=== PATIENT | female | born 1990 | race Caucasian/White ===

== ENCOUNTER 2017-03-09 12:36 | Outpatient (CLI) | payer OTHER ==
[~2017-03-09] VITALS: Ht 152.4 cm; Wt 74.0 kg
[~2017-03-09 12:36] MED LIST: PREN-39 PO
[2017-03-09 13:16] VITALS: BP 100/50; PULSE 81; RESP 18; Ht 152.4 cm; Wt 74.0 kg
--- NOTE | 2017-03-09 13:52 | RADRPT ---
PROCEDURE: OB ultrasound for biophysical profile CLINICAL INDICATION: Decreased movement TECHNIQUE: Multiple sonographic images of the pelvis were obtained. Transabdominal views of the g ravid uterus are available for review. The images were reviewed on a PACS workstation. COMPARISON: None FINDINGS: breathing movement = 2/2 tone = 2/2 motion = 2/2 LIU = 2/2 LIU = 14.9 cm Single live intrauterine with cardiac activity of 150 bpm. position is breech . The placenta is anterior. The cervix is closed with a length of 4.1 cm. IMPRESSION: 1. Single live intrauterine gestation. 2. Biophysical profile = 03/16. 3. LIU = 14.9 cm. 4. Breech presentation. 5. The cervix is closed with a length of 4.1 cm. RPTAT: HH .Shelby Hu MD, Date Time Electronically viewed and signed by .Shelby Hu MD, on 03/09/2017 13:52 .G/
[2017-03-09 14:13] LABS: UR BACTERIA FEW /HPF (NONE SEEN); UR MUCUS MODERATE /HPF (NONE SEEN); UR RBC 2 /HPF (0-5); UR SQUAMOUS EPITHELIAL CELL FEW /HPF (FEW)
[2017-03-09 14:14] LABS: ADD UMIC YES; UR ASCORBIC ACID NEGATIVE (NEGATIVE); UR BILIRUBIN (Dip) NEGATIVE (NEGATIVE); UR BLOOD (Dip) NEGATIVE (NEGATIVE); UR CLARITY CLEAR (CLEAR); UR COLOR YELLOW (YELLOW); UR GLUCOSE (Dip) NEGATIVE (NEGATIVE); UR KETONES (Dip) TRACE mg/dL (NEGATIVE); UR LEUKOCYTE ESTERASE (Dip) TRACE Leu/ul (NEGATIVE); UR NITRITE (Dip) NEGATIVE (NEGATIVE); UR SPECIFIC GRAVITY (Dip) 1.025 (1.003-1.030); UR TOTAL PROTEIN (Dip) NEGATIVE (NEGATIVE); UR UROBILINOGEN (Dip) NEGATIVE (NEGATIVE)
--- NOTE | 2017-03-09 14:49 | CONS ---
Date/Time of Note Date/Time of Note DATE: 03/09/17 TIME: 14:40 Consultation Date/Type/Reason Admit Date/Time March 09, 2017 OB triage consult Reason for Consultation This patient is a 26 years old 3 para 2 living 2 who had both previous deliveries by section. Her estimated date of confinement is June 20, 2017 which makes her 25 weeks and 2 days now. She came in complaining of premature contractions for the entire last week and the low movement. On examination she is a well-developed well-nourished lady. Her general vital signs are basically normal with the blood pressure of 100/50, pulse rate 81 respiration 18,, and temperature 98.0. Laboratory Tests Test 03/09/17 13:30 Urine Color YELLOW Urine Clarity CLEAR Urine pH 5.0 Urine Specific [place] 1.025 Urine Ketones TRACEmg/dL Urine Nitrite NEGATIVEmg/dL Urine Bilirubin NEGATIVEmg/dL Urine Urobilinogen NEGATIVEmg/dL Urine Leukocyte Esterase TRACELeu/ul Urine Microscopic RBC 2/HPF Urine Microscopic WBC 1/HPF Urine Squamous Epithelial Cells FEW/HPF Urine Bacteria FEW/HPF Urine Mucus MODERATE/HPF Urine Hemoglobin NEGATIVEmg/dL Urine Glucose NEGATIVEmg/dL Urine Total Protein NEGATIVEmg/dl Constitutional: chills, diaphoresis, disoriented, febrile, improved, no complaints, other, poor po, requiring IVF, requiring O2 Eyes: discharge, no complaints, other, pain, redness, visual change ENT: bleeding, congestion, discharge, dysphagia, no complaints, other, pain, sore throat Respiratory: cough, no complaints, other, pain, pleuritic pain, shortness of breath, sputum, wheezing Cardiovascular: chest pain, edema, lightheadedness, no complaints, orthopenea, other (Heart normal sinus rhythm no murmur), palpitations, paroxysmal nocturnal dyspnea Gastrointestinal: other (Abdomen is soft no evidence of uterine contractions heart tone is normal), No blood, No constipation, No decreased appetite, No diarrhea, No flatus, No nausea, No no complaints, No pain, No passing stool, No vomiting Genitourinary: other (No CVA tenderness no dysuria), No bleeding, No discharge, No dysuria, No flank pain, No hematuria, No no complaints Musculoskeletal: No back pain, No bone/joint pain, No neck pain, No no complaints, No other, No restricted range of motion, No swelling Skin: No bruising, No erythema, No laceration, No no complaints, No other, No pruritis, No rash, No skin lesions Neurologic: other (Knee-jerk reflex are normal), No confusion, No dizziness, No focal-weakness, No headache, No no complaints , No seizure, No syncope Endocrine: No dry skin, No no complaints, No other, No polydypsia, No polyuria , No temp intolerance Additional Comments OB ultrasound was performed and the report was ;a single live intrauterine with cardiac activity 150 bpm in breech presentation placenta was anterior cervical length was 4.1 cm. The amniotic fluid index was 14.9 cm and LIU was 8/8 Disposition; with these normal findings the patient was reassured and she was discharged home with instruction to rest and return if any evidence of bleeding .severe pain, low movement or any sign of labor to be seen in the triage area Social History Smoking Status: Never smoker Exam/Review of Systems Vital Signs Vitals Vital Signs Date Time Temp Pulse Resp B/P Pulse Ox O2 Delivery O2 Flow Rate FiO2 03/09/17 13:16 98.0 81 18 100/50 Room Air Results Results 24 hrs Laboratory Tests Test 03/09/17 13:30 Urine Color YELLOW Urine Clarity CLEAR Urine pH 5.0 Urine Specific [place] 1.025 Urine Ketones TRACE A Urine Nitrite NEGATIVE Urine Bilirubin NEGATIVE Urine Urobilinogen NEGATIVE Urine Leukocyte Esterase TRACE A Urine Microscopic RBC 2 Urine Microscopic WBC 1 Urine Squamous Epithelial Cells FEW Urine Bacteria FEW A Urine Mucus MODERATE Urine Hemoglobin NEGATIVE Urine Glucose NEGATIVE Urine Total Protein NEGATIVE YOGI MUNOZ MD Mar 09, 2017 14:49
--- NOTE | 2017-03-09 17:27 | TRIAGE ---
OB Triage Datetime Report Generated by CPN: 03/09/2017 17:27 Datetime: 03/09/2017 14:33 Stage of : OB Triage Datetime: 03/09/2017 14:21 Stage of : OB Triage Datetime: 03/09/2017 14:13 Labor Evaluation Frequency: 0 Monitor Mode: External US Pain Assessment Pain Scale: 5 Pain Presence: Intermittent Pain Type: Cramping Pain Location: Perineum Pain Goal: 3 Pain Relief Measures: Comfort Measures Datetime: 03/09/2017 13:27 Assessment Type: Admission Assessment Maternal Assessment Level of Consciousness: Fully Conscious DTR's/Clonus: DTRs 2+; No Clonus Headache: Denies Blurred Vision: No Respiratory Effort: Unlabored; Regular Rhythm; Equal Expansion Breath Sounds, Left: Clear and Equal Breath Sounds, Right: Clear and Equal Nausea/Vomiting: Denies RUQ Epigastric Pain: Denies Lower Extremities Edema: None Degree: None Upper Extremities Edema: None Degree: None Facial Edema: None Fall Risk Assessment History of Falling: (0) No Secondary Diagnosis: (0) No Ambulatory Aid: (0) Bedrest/Nurse Assist IV Therapy: (0) No Gait: (0) Normal/Bedrest/Immobile Mental Status: (0) Oriented to Own Ability Fall Score: 0 Fall Risk Score Definition: No Risk: No action required Labor Evaluation Frequency: 115 Monitor Mode: External Duration (sec)2399: 40 Quality: Mild Pattern: Normal: <= 5 Contractions in 10 Minutes Resting Tone [place]: Relaxed Heart Rate FHR Baseline Rate: 145 Monitor Mode: External US Variability: Moderate 6-25 bpm Accelerations: 10X10 Decelerations: None Category: Category I Datetime: 03/09/2017 13:24 Time of Arrival: 03/09/2017 12:34 EGA: 25.2 Arrived By: Ambulatory Arrived From: Home Chief Complaint: DFM AND UC'S SINCE LAST WEEK Movement: Decreased Contractions: Irregular Time Contractions Began: 03/02/2017 00:00 Rupture of Membranes: Denies Vaginal Bleeding: None Vaginal Discharge: Denies Recent Sexual Intercouse: Denies Abdominal Trauma: Not Applicable Patient Complaints: Cramping Time Provider Notified: 03/09/2017 14:21 Provider Notified: HUSSAIN Initial Plan: NST, BPP, CERVICAL LENGHT AND UA
== END 2017-03-09 14:46 | disposition home or self-care (01) ==
LOC: OBT 12:36 → L-D 12:39 → OBT 14:46
PROVIDERS: ATTEND Obstetrics & Gynecology
DX: O47.02 False labor before 37 completed weeks of gestation, second trimester (principal); Z3A.25 25 weeks gestation of pregnancy
CPT/HCPCS: 76817; 76818; 81001; Z7500; G0463

== ENCOUNTER 2017-04-13 16:42 | Inpatient (IN) | payer OTHER ==
[~2017-04-13] VITALS: Ht 152.4 cm; Wt 74.0 kg
[2017-04-13 17:07] VITALS: Ht 152.4 cm; Wt 74.0 kg
[2017-04-13 17:08] VITALS: BP 111/68; PULSE 107
[2017-04-13] MEDS ORDERED: HYDR250V5 IM (17:10)
[2017-04-13 17:51] LABS: ADD UMIC YES; UR ASCORBIC ACID NEGATIVE (NEGATIVE); UR BILIRUBIN (Dip) 1+ mg/dL (NEGATIVE); UR BLOOD (Dip) NEGATIVE (NEGATIVE); UR CLARITY SLIGHTLY CLOUDY (CLEAR); UR COLOR AMBER (YELLOW); UR GLUCOSE (Dip) NEGATIVE (NEGATIVE); UR KETONES (Dip) 1+ mg/dL (NEGATIVE); UR LEUKOCYTE ESTERASE (Dip) NEGATIVE Leu/ul (NEGATIVE); UR MUCUS MANY /HPF (NONE SEEN); UR NITRITE (Dip) NEGATIVE (NEGATIVE); UR RBC 1 /HPF (0-5); UR SQUAMOUS EPITHELIAL CELL FEW /HPF (FEW); UR TOTAL PROTEIN (Dip) 2+ mg/dl (NEGATIVE); UR UROBILINOGEN (Dip) 2+ mg/dL (NEGATIVE)
[2017-04-13 18:02] LABS: BASOPHILS % 0.2 % (0.0-2.0); EOSINOPHILS # 0.2 10^3/ul (0.0-0.5); HEMATOCRIT 29.6 % (37.0-47.0); HEMOGLOBIN 9.8 g/dl (12.0-16.0); LYMPHOCYTES % 23.7 % (15.0-51.0); MEAN CORPUSCULAR HEMOGLOBIN 29.5 pg (29.0-33.0); MEAN CORPUSCULAR HGB CONC 33.1 g/dl (32.0-37.0); MEAN CORPUSCULAR VOLUME 89.2 fl (82.0-101.0); MEAN PLATELET VOLUME 11.2 fl (7.4-10.4); MONOCYTE # 0.7 10^3/ul (0.3-0.9); MONOCYTES % 8.3 % (0.0-11.0); NEUTROPHILS % 65.4 % (39.0-77.0); PLATELET COUNT 175 10^3/UL (140-415); RED BLOOD COUNT 3.32 10^6/ul (4.20-5.40); RED CELL DISTRIBUTION WIDTH 12.9 % (11.5-14.5); WHITE BLOOD COUNT 8.5 10^3/ul (4.8-10.8)
--- NOTE | 2017-04-13 18:34 | RADRPT ---
PROCEDURE: Biophysical profile CLINICAL INDICATION: distress. labor. TECHNIQUE: Color and yoder-scale ultrasound images of an intrauterine gestation were obtained. COMPARISON: March 09, 2017 FINDINGS: A single live intrauterine gestation is identified in breech position with an estimated heart rate of 132 beats per minute. The placenta is located anteriorly and has a grade of II. The cervix measures approximately 3.3 cm in length. Trace amount of fluid is seen in the cervical canal. No e vidence of previa or abruption identified. LIU is 20.4 cm. movement 2/2. tone 2/2. breathing movement 2/2. Qualitative AFV 2/2 Total biophysical profile 03/16 IMPRESSION: 03/16 biophysical profile. Cervical length of 3.3 cm. Trace fluid in the cervical canal. RPTAT: AA .Denys Kapoor MD, Date Time Electronically viewed and signed by .Denys Kapoor MD, MD on 04/13/2017 18:33 .P/
[2017-04-13] MEDS ORDERED: LACTATED RINGER'S 1,000 ML IV ONE (21:00)
[2017-04-13] MEDS: LACTATED RINGER'S 1,000 ML IV SCH ×2 (21:30→23:18)
--- NOTE | 2017-04-13 22:51 | HP ---
Date/Time of Note Date/Time of Note DATE: 04/13/17 TIME: 22:39 OB - History Hx of Present Free Text/Dictation .26y.o who had x2 c/s with one PTB whos been receiving bernie injection wkly was sent from her OB for further evaluation c/o uterine contractions frequent ,pain level 5/10 even though dosent well registered on EFM after the IV hydration still c/o intermittent pelvic pain which shows as mild frequent U.C CVL 4.1 03/09/17 today 3.3cm trace of fluid in the canal admit her to antepartum with starting magnesium sulfate and BMZ bed rest Chief Complaint: U.C's Estimated Due Date: Jun 20, 2017 : 3 Para: 2 Spontaneous : 0 Therapeutic : 0 Care: Good Care Ultrasounds: Normal mid trimester US Obstetrical Complications: None Medical Complications: None Other Concerns: hx of PTB Past Family/Social History * Past Medical, Surgical, Family and Obstetric Histories reviewed from chart. Blood Type: Unknown Rubella: unknown RPR/VDRL: Unknown GBS Status: Unknown HBsAG: Unknown OB Admission Exam Vital Signs Vital Signs Vital Signs Date Time Temp Pulse Resp B/P Pulse Ox O2 Delivery O2 Flow Rate FiO2 04/13/17 17:08 98.7 107 111/68 Physical Exam HEENT: WNL Heart: Rhythm Normal Lungs: Clear, Equal Abdomen: WNL Extremities: Normal Reflexes: Normal Effacement: Other Station: Other Amniotic Fluid: Other Heart Rate: 150's Accelerations: Accelerations Present Decelerations: Variable Decelerations Varibility: Moderate Contractions on Admission: < 5 Minutes Apart Intensity: Mild Last 72 hours Lab Results CBC & BMP 04/13/17 17:45 OB Assessment/Plan Reason for admission: labor Other Assessment: 30w2d Plan: Other (Mg so4 BMZx2) Other plan: bed rest MFM consult CHANDAN CHILDRESS MD Apr 13, 2017 22:49
[2017-04-13] MEDS ORDERED: ACETAMINOPHEN 325 MG TAB PO PRN (23:00)
[2017-04-13] MEDS ORDERED: MAGNESIUM SULFATE 4 GM/100 ML 100 ML IV ONE (23:00)
[2017-04-13] MEDS: MAGNESIUM SULFATE 20 GM/500 ML 500 ML IV SCH (23:49)
[2017-04-13] MEDS: BETAMET NA PHOS/AC(6 MG/ML) 5ML INJ IM SCH (23:56)
[2017-04-14 01:49] LABS: INR 0.99; PROTIME 13.1 Sec (12.2-14.2)
--- NOTE | 2017-04-14 06:04 | TRIAGE ---
OB Triage Datetime Report Generated by CPN: 04/14/2017 06:03 Datetime: 04/14/2017 05:15 Stage of : Antepartum Labor Evaluation Frequency: 4 + IRRITABILITY Monitor Mode: External Duration (sec)2399: 50-60 Quality: Mild Pattern: Normal: <= 5 Contractions in 10 Minutes Resting Tone [place]: Relaxed Heart Rate FHR Baseline Rate: 120 Monitor Mode: External US Variability: Moderate 6-25 bpm Accelerations: 15X15 Decelerations: None Category: Category I Vaginal Exam Membrane Status: Intact Datetime: 04/14/2017 04:15 Stage of : Antepartum Labor Evaluation Frequency: 2-4+ IRRITABILITY Monitor Mode: External Duration (sec)2399: 50-60 Quality: Mild Pattern: Normal: <= 5 Contractions in 10 Minutes Resting Tone [place]: Relaxed Heart Rate FHR Baseline Rate: 125 Monitor Mode: External US Variability: Moderate 6-25 bpm Accelerations: 15X15 Decelerations: None Category: Category I Pain Assessment Pain Scale: 2 Pain Presence: Intermittent Pain Type: Contraction Pain Location: Abdomen; Back Pain Relief Measures: Comfort Measures Vaginal Exam Membrane Status: Intact Datetime: 04/14/2017 03:15 Stage of : Antepartum Labor Evaluation Frequency: 2-4 Monitor Mode: External Duration (sec)2399: 50-60 Quality: Mild Pattern: Normal: <= 5 Contractions in 10 Minutes Resting Tone [place]: Relaxed Heart Rate FHR Baseline Rate: 130 Monitor Mode: External US Variability: Moderate 6-25 bpm Accelerations: 15X15 Decelerations: None Category: Category I Pain Assessment Pain Scale: 2 Pain Presence: Intermittent Pain Type: Contraction Pain Location: Abdomen; Back Pain Relief Measures: Comfort Measures Vaginal Exam Membrane Status: Intact Datetime: 04/14/2017 02:15 Labor Evaluation Frequency: IRRITABILITY Monitor Mode: External Duration (sec)2399: 30-50 Quality: Mild Pattern: Normal: <= 5 Contractions in 10 Minutes Resting Tone [place]: Relaxed Heart Rate FHR Baseline Rate: 135 Variability: Moderate 6-25 bpm Accelerations: 15X15 Decelerations: None Category: Category I Pain Assessment Pain Scale: 2 Pain Presence: Intermittent Pain Type: Contraction Pain Location: Abdomen; Back Pain Relief Measures: Comfort Measures Vaginal Exam Membrane Status: Intact Datetime: 04/14/2017 01:23 Stage of : Antepartum Labor Evaluation Frequency: irritability Monitor Mode: External Duration (sec)2399: 20-40 Quality: Mild Pattern: Normal: <= 5 Contractions in 10 Minutes Resting Tone [place]: Relaxed Heart Rate FHR Baseline Rate: 135 Variability: Moderate 6-25 bpm Accelerations: 10X10 Decelerations: None Category: Category I Pain Assessment Pain Scale: 5 Pain Presence: Intermittent Pain Type: Contraction Pain Location: Abdomen; Back Pain Goal: 8 Pain Relief Measures: Comfort Measures Vaginal Exam Membrane Status: Intact Datetime: 04/14/2017 01:19 Time of Arrival: 04/14/2017 01:19 EGA: 30.3 Arrived By: Stretcher Arrived From: Other Unit in Hospital Datetime: 04/14/2017 01:15 Stage of : Antepartum Temperature Route: Oral Datetime: 04/14/2017 00:57 Stage of : OB Triage Labor Evaluation Frequency: Irritability _ irregular uc's Monitor Mode: External Duration (sec)2399: 20-80 Quality: Mild Pattern: Normal: <= 5 Contractions in 10 Minutes Resting Tone [place]: Relaxed Heart Rate FHR Baseline Rate: 130 Monitor Mode: External US Variability: Moderate 6-25 bpm Accelerations: 15X15 Decelerations: None Category: Category I Datetime: 04/14/2017 00:00 Stage of : OB Triage Labor Evaluation Frequency: Irritability _ irregular uc's Monitor Mode: External Duration (sec)2399: 20-50 Quality: Mild Pattern: Normal: <= 5 Contractions in 10 Minutes Resting Tone [place]: Relaxed Heart Rate FHR Baseline Rate: 135 Monitor Mode: External US Variability: Moderate 6-25 bpm Accelerations: 15X15 Decelerations: None Category: Category I Datetime: 04/13/2017 23:00 Stage of : OB Triage Labor Evaluation Frequency: Irritability _ irregular uc's Monitor Mode: External Duration (sec)2399: 30-40 Quality: Mild Pattern: Normal: <= 5 Contractions in 10 Minutes Resting Tone [place]: Relaxed Heart Rate FHR Baseline Rate: 130 Monitor Mode: External US Variability: Moderate 6-25 bpm Accelerations: 15X15 Decelerations: None Category: Category I Datetime: 04/13/2017 22:15 Vaginal Exam Membrane Status: Intact Datetime: 04/13/2017 22:00 Stage of : OB Triage Labor Evaluation Frequency: Irritability _ irregular uc's Monitor Mode: External Duration (sec)2399: 20-60 Quality: Mild Pattern: Normal: <= 5 Contractions in 10 Minutes Resting Tone [place]: Relaxed Comments: Pt reports positive movt. Datetime: 04/13/2017 21:00 Stage of : OB Triage Labor Evaluation Frequency: Irritability _ irregular uc's Monitor Mode: External Duration (sec)2399: 20-70 Quality: Mild Pattern: Normal: <= 5 Contractions in 10 Minutes Resting Tone [place]: Relaxed Heart Rate FHR Baseline Rate: 140 Monitor Mode: External US FHR Baseline Changes: No Baseline Change Variability: Moderate 6-25 bpm Accelerations: 15X15 Decelerations: Variable Category: Category II Datetime: 04/13/2017 20:51 Stage of : OB Triage Datetime: 04/13/2017 20:00 Stage of : OB Triage Labor Evaluation Frequency: Irritability Monitor Mode: External Duration (sec)2399: 20-50 Quality: Mild Pattern: Normal: <= 5 Contractions in 10 Minutes Resting Tone [place]: Relaxed Heart Rate FHR Baseline Rate: 140 Monitor Mode: External US Variability: Moderate 6-25 bpm Accelerations: 15X15 Decelerations: Variable Category: Category II Datetime: 04/13/2017 19:31 Stage of : OB Triage Assessment Type: Triage Maternal Assessment Level of Consciousness: Fully Conscious DTR's/Clonus: DTRs 2+; No Clonus Headache: Denies Blurred Vision: No Respiratory Effort: Unlabored; Regular Rhythm; Equal Expansion Breath Sounds, Left: Clear and Equal Breath Sounds, Right: Clear and Equal Nausea/Vomiting: Denies RUQ Epigastric Pain: Denies Lower Extremities Edema: Bilateral Lower Extremities Degree: 1+ Upper Extremities Edema: None Degree: None Facial Edema: None Temperature Route: Oral Fall Risk Assessment History of Falling: (0) No Secondary Diagnosis: (0) No Ambulatory Aid: (0) Bedrest/Nurse Assist IV Therapy: (0) No Gait: (0) Normal/Bedrest/Immobile Mental Status: (0) Oriented to Own Ability Fall Score: 0 Fall Risk Score Definition: No Risk: No action required Monitor Mode: External US Datetime: 04/13/2017 19:30 Stage of : OB Triage Datetime: 04/13/2017 19:15 Stage of : OB Triage Datetime: 04/13/2017 17:38 Stage of : OB Triage Datetime: 04/13/2017 17:04 Stage of : OB Triage Assessment Type: Triage Maternal Assessment Level of Consciousness: Fully Conscious DTR's/Clonus: DTRs 2+; No Clonus Headache: Denies Blurred Vision: No Respiratory Effort: Unlabored; Regular Rhythm; Equal Expansion Breath Sounds, Left: Clear and Equal Breath Sounds, Right: Clear and Equal Nausea/Vomiting: Denies RUQ Epigastric Pain: Denies Facial Edema: None Temperature Route: Axillary Fall Risk Assessment History of Falling: (0) No Secondary Diagnosis: (0) No Ambulatory Aid: (0) Bedrest/Nurse Assist IV Therapy: (0) No Gait: (0) Normal/Bedrest/Immobile Mental Status: (0) Oriented to Own Ability Fall Score: 0 Fall Risk Score Definition: No Risk: No action required Labor Evaluation Frequency: 0 Monitor Mode: External Resting Tone [place]: Relaxed Heart Rate FHR Baseline Rate: 145 Monitor Mode: External US Variability: Moderate 6-25 bpm Accelerations: 10X10 Decelerations: None Category: Category I Pain Assessment Pain Scale: 5 Pain Presence: Intermittent Pain Type: Cramping Pain Location: Abdomen Pain Goal: 3 Pain Relief Measures: Comfort Measures Datetime: 04/13/2017 16:20 Time of Arrival: 04/13/2017 16:14 EGA: 30.2 Arrived By: Ambulatory Chief Complaint: UCs Movement: Present Contractions: Regular Rupture of Membranes: Denies Vaginal Bleeding: None Vaginal Discharge: Denies Abdominal Trauma: Not Applicable Patient Complaints: Contractions; Cramping Time Provider Notified: 04/13/2017 17:38 Provider Notified: Initial Plan: UA, CBC, BPP/LIU, CERVICAL LENGTH Datetime: 03/09/2017 17:26 Time of Arrival: 04/13/2017 16:14 EGA: 30.2 Arrived By: Ambulatory Arrived From: Home Chief Complaint: C/O UC'S, DENIES BLEEDING OR LEAKING Movement: Decreased Contractions: Denies/Absent Rupture of Membranes: Denies Vaginal Bleeding: None Vaginal Discharge: Present Recent Sexual Intercouse: Denies Abdominal Trauma: Not Applicable Patient Complaints: Cramping Time Provider Notified: 04/13/2017 17:40 Provider Notified: ALEXANDER Initial Plan: MONITOR, U/A, CBC, CL, BPP/LIU Datetime: 03/09/2017 13:27 Fall Score: 0 Fall Risk Score Definition: No Risk: No action required Datetime: 03/09/2017 13:24 EGA: 25.2
[2017-04-14] MEDS: LACTATED RINGER'S 1,000 ML IV SCH ×4 (07:30→23:46)
[2017-04-14] MEDS: PRENATAL VITAMIN PO SCH (09:12)
[2017-04-14] MEDS: MAGNESIUM SULFATE 20 GM/500 ML 500 ML IV SCH ×2 (09:15→18:07)
--- NOTE | 2017-04-14 13:18 | QN ---
Documentation Comment 30+wks GA labor No CTxs No VB No CTXs +FM No VB Currently On Mg s/p 1st dose of steroid NST reassuring Laie NO CTXs Pelvic Deferred --->Contniue the current orders ELIECER MARQUEZ M.D. Apr 14, 2017 13:18
[2017-04-14] MEDS: BETAMET NA PHOS/AC(6 MG/ML) 5ML INJ IM SCH (23:45)
[2017-04-15] MEDS: LACTATED RINGER'S 1,000 ML IV SCH ×5 (01:30→21:30)
[2017-04-15] MEDS: MAGNESIUM SULFATE 20 GM/500 ML 500 ML IV SCH ×3 (03:09→23:23)
[2017-04-15] MEDS: PRENATAL VITAMIN PO SCH (13:14)
--- NOTE | 2017-04-15 18:54 | CONS ---
Date/Time of Note Date/Time of Note DATE: 04/15/17 TIME: 18:49 Consultation Date/Type/Reason Admit Date/Time April 15, 2017 High risk hospital consult This patient is a 26 years old 3 para 2 with estimated date of confinement of 06/20/2017 which makes her 30 weeks and 6/7 a She was admitted in the hospital to nights ago. Due to previous history of delivery at 27 weeks. She had 2 section in the past currently she is in [place] weekly On ultrasound which was performed on April 13 her cervical length was 3.3 cm she already received a mag sulfate 2 on her max sulfate will be stopped at 11: 00 tonight he also received betamethasone twice Laboratory Tests Test 04/14/17 23:54 04/15/17 05:52 04/15/17 12:07 Magnesium Level 6.0mg/dl 6.0mg/dl 6.1mg/dl Current Medications Medications (Trade) Dose Ordered Sig/Nayeli Route PRN Reason Start Time Stop Time Status Last Admin Dose Admin Lactated Ringer's 1,000 ml @ 1,000 mls/hr Q1H ONCE IV 04/13/17 21:00 04/13/17 21:59 DC 04/13/17 21:19 1,000 MLS/HR Lactated Ringer's 1,000 ml @ 125 mls/hr Q8H IV 04/13/17 21:30 04/15/17 13:15 125 MLS/HR Lactated Ringer's 1,000 ml @ 75 mls/hr [id number] IV 04/13/17 22:50 04/14/17 10:40 75 MLS/HR Magnesium Sulfate 100 ml @ 200 mls/hr ONCE ONCE IV 04/13/17 23:00 04/13/17 23:29 DC 04/13/17 23:21 200 MLS/HR Magnesium Sulfate (Magnesium Sulfate 20 Gm/500 ml) 500 ml @ 50 mls/hr Q10H IV 04/13/17 23:30 04/15/17 13:17 50 MLS/HR Betamethasone Acet/Betameth SodPhos ([place] Soluspan) 12 mg Q24H IM 04/13/17 23:00 04/14/17 23:01 DC 04/14/17 23:45 12 MG Prenat Multivit/ [place]/Iron/Folic Ac () 1 tab DAILY PO 04/14/17 09:00 04/15/17 13:14 1 TAB Acetaminophen (Tylenol Tab) 650 mg Q4H PRN PO PAIN AND OR ELEVATED TEMP 04/13/17 23:00 . Initial Consult Date Reason for Consultation Due to the complaint of a pink vaginal discharge I did a pelvic exam on pelvic exam the cervix is soft his posterior closed no evidence of pink discharge or vaginal bleeding with these finding if if he does not develop any contractions she might be discharged tomorrow performed for further follow-up in the clinic 24 HR Interval Summary Constitutional: other Exam/Review of Systems Vital Signs Vitals Vital Signs Date Time Temp Pulse Resp B/P Pulse Ox O2 Delivery O2 Flow Rate FiO2 04/13/17 17:08 98.7 107 111/68 Intake and Output 04/14/17 04/14/17 04/15/17 14:59 22:59 06:59 Intake Total 875 ml 1245 ml 1010 ml Output Total 800 ml 2100 ml 650 ml Balance 75 ml -855 ml 360 ml Results Result Diagram: 04/13/17 1745 Results 24 hrs Laboratory Tests Test 04/14/17 23:54 04/15/17 05:52 04/15/17 12:07 Magnesium Level 6.0 *H 6.0 *H 6.1 *H Medications Medications Current Medications Lactated Ringer's 1,000 ml @ 125 mls/hr Q8H IV Last administered on 04/15/17 13:15; Admin Dose 125 MLS/HR; Start 04/13/17 at 21:30 Lactated Ringer's 1,000 ml @ 75 mls/hr [id number] IV Last administered on 10:40; Admin Dose 75 MLS/HR; Start 04/13/17 at 22:50 Magnesium Sulfate (Magnesium Sulfate 20 Gm/500 ml) 500 ml @ 50 mls/hr Q10H IV Last administered on 04/15/17 13:17; Admin Dose 50 MLS/HR; Start 04/13/17 at 23: 30 Prenat Multivit/ [employer]/Iron/Folic Ac () 1 tab DAILY PO Last administered on 04/15/17 13:14; Admin Dose 1 TAB; Start 04/14/17 at 09:00 Acetaminophen (Tylenol Tab) 650 mg Q4H PRN PO PAIN AND OR ELEVATED TEMP; Start 04/13/17 at 23:00 YOGI MUNOZ MD Apr 15, 2017 18:54
--- NOTE | 2017-04-15 22:26 | NEURPT ---
DATE: 04/15/2017 HISTORY: The patient is a 26-year-old at 30 weeks and 4 days, who was admitted because of contractions. Her cervical length upon admission was 3.3 cm. She was placed on magnesium sulfate and given betamethasone. However, she expresses to have contractions once an hour, and apparently this morning after wiping herself in the bathroom, she had some pinkish discharge. OBSTETRICAL HISTORY: Significant for delivery of 1st at 27 weeks, however, 2nd was a full term baby. Otherwise, her history is negative. REVIEW OF SYSTEMS: Negative except for what is mentioned above. PHYSICAL EXAMINATION: Vital signs are stable. heart tones appropriate for gestational age. Contraction irritability once or twice, contractions every hour. UA is negative. IMPRESSION: Intrauterine at 30 weeks and 4 days in labor on magnesium sulfate, status post betamethasone. Continues to have some contractions, however, subclinical as once an hour, but she experienced some pinkish discharge in the bathroom today. RECOMMENDATIONS: Please check cervix digitally to assess whether it has been further dilated or shortened. I do recommend either increasing the dose of magnesium sulfate or starting Indocin for 2 to 4 days. After the patient stops anni for 24 hours and her situation is stable, she can be discharged home with follow up at perinatology for transvaginal examination. Dictated By: Sonja Espino MD /[email or web address] /Document#: [id number]
[2017-04-16] MEDS: LACTATED RINGER'S 1,000 ML IV SCH (02:17)
[2017-04-16] MEDS: PRENATAL VITAMIN PO SCH (08:40)
--- NOTE | 2017-04-16 09:08 | QN ---
Documentation Comment PT. W/O COMPLAINTS VSS TRACING CATEGORY 1 V/E : CLOSED PLAN : STOP MGSO4 D/C HOME MEI NIXON MD Apr 16, 2017 09:08
--- NOTE | 2017-04-16 09:10 | DS ---
Date/Time of Note Date/Time of Note DATE: 04/16/17 TIME: 09:09 Discharge Summary Admission/Discharge Info Admit Date/Time Apr 13, 2017 at 22:50 Discharge Date/Time Discharge Diagnosis LABOR Patient Condition: Stable Hospital Course UNREMARKABLE, MAGNESIUM AND BETAMETHASAONE Home Meds Reported Medications Hydroxyprogesterone Caproate ([place]) 250 Mg/1 Ml Vial, 250 MG IM, VIAL 04/13/17 Vits W-Ca,Fe,Fa(<1MG) ( Vitamins) 1 Tab Tablet, 1 TAB PO DAILY 01/30/15 Primary Care Provider Cecelia Bo DO Pending Labs Laboratory Tests Test 04/15/17 12:07 Magnesium Level 6.1mg/dl (1.7-2.5) MEI NIXON MD Apr 16, 2017 09:10
== END 2017-04-16 14:05 | disposition home or self-care (01) | DRG 778 ==
LOC: OBT 16:42 → L-D 16:42 → OBT 22:50 → OBG 04-14 02:22
PROVIDERS: ADMIT Obstetrics & Gynecology; ATTEND Obstetrics & Gynecology
DX: O60.03 Preterm labor without delivery, third trimester (principal); O34.219 Maternal care for unspecified type scar from previous cesarean delivery; Z3A.30 30 weeks gestation of pregnancy
CPT/HCPCS: 36415; 76817; 76818; 81001; 83735; 85025; 85610; 85730; 86592; 86850; 86900; 86901; 87086; 96360; 96361; 96367; 96372; G0463; J0702; J3475; J7120

== ENCOUNTER 2017-05-10 20:25 | Outpatient (CLI) | payer OTHER ==
[~2017-05-10] VITALS: Ht 152.4 cm; Wt 74.5 kg
[~2017-05-10 20:25] MED LIST changes: +HYDR250V5 IM
[2017-05-10 21:20] LABS: ADD UMIC YES; UR ASCORBIC ACID NEGATIVE (NEGATIVE); UR BACTERIA FEW /HPF (NONE SEEN); UR BILIRUBIN (Dip) NEGATIVE (NEGATIVE); UR BLOOD (Dip) 1+ mg/dL (NEGATIVE); UR CLARITY CLEAR (CLEAR); UR COLOR YELLOW (YELLOW); UR GLUCOSE (Dip) NEGATIVE (NEGATIVE); UR KETONES (Dip) NEGATIVE (NEGATIVE); UR LEUKOCYTE ESTERASE (Dip) TRACE Leu/ul (NEGATIVE); UR MUCUS FEW /HPF (NONE SEEN); UR NITRITE (Dip) NEGATIVE (NEGATIVE); UR RBC 2 /HPF (0-5); UR SPECIFIC GRAVITY (Dip) 1.006 (1.003-1.030); UR SQUAMOUS EPITHELIAL CELL FEW /HPF (FEW); UR TOTAL PROTEIN (Dip) NEGATIVE (NEGATIVE); UR UROBILINOGEN (Dip) NEGATIVE (NEGATIVE)
[2017-05-10] MEDS ORDERED: TERBUTALINE 1 ML ONE (21:25)
[2017-05-10] MEDS: TERBUTALINE 1 MG/ML INJ SC SCH ×2 (21:34→22:27)
--- NOTE | 2017-05-10 23:41 | TRIAGE ---
OB Triage Datetime Report Generated by CPN: 05/10/2017 23:40 Datetime: 05/10/2017 23:31 Vaginal Exam Dilatation (cms): 0.5 Effacement (%): 30 Station: -3 Exam By: GSTRATTON RN Datetime: 05/10/2017 23:23 Pain Assessment Comments: PT. STATES THAT CRAMPING FEELS UNCHANGED Datetime: 05/10/2017 22:30 Labor Evaluation Frequency: OCC Monitor Mode: External Duration (sec)2399: 30-40 Pattern: Normal: <= 5 Contractions in 10 Minutes Heart Rate FHR Baseline Rate: 145 Monitor Mode: External US FHR Baseline Changes: No Baseline Change Variability: Moderate 6-25 bpm Accelerations: 15X15 Datetime: 05/10/2017 22:28 Pain Assessment Pain Scale: 6 Pain Presence: Constant Pain Type: Cramping Pain Location: Abdomen Pain Relief Measures: Comfort Measures Datetime: 05/10/2017 21:40 Comments: U/S MONITOR EXCHANGED Datetime: 05/10/2017 21:30 Labor Evaluation Frequency: occ Monitor Mode: External Duration (sec)2399: 30-50 Pattern: Normal: <= 5 Contractions in 10 Minutes Heart Rate FHR Baseline Rate: 145 FHR Baseline Changes: No Baseline Change Variability: Moderate 6-25 bpm Accelerations: 10X10 Decelerations: Variable Datetime: 05/10/2017 21:25 Monitor Mode: Palpation Resting Tone Cavalero: Relaxed Datetime: 05/10/2017 20:42 Monitor Mode: Palpation Resting Tone Cavalero: Relaxed Datetime: 05/10/2017 20:35 Vaginal Exam Dilatation (cms): 0.5 Effacement (%): 30 Station: -3 Exam By: GSTRATTON RN Cervix, Consistency: Soft Cervix, Position: Midposition Datetime: 05/10/2017 20:32 Time of Arrival: 05/10/2017 20:20 EGA: 34.1 Arrived By: Wheelchair Arrived From: Home Chief Complaint: CONSTANT CRAMPING SINCE 15:00 Movement: Present Rupture of Membranes: Denies Vaginal Bleeding: None Vaginal Discharge: Present Recent Sexual Intercouse: Denies Abdominal Trauma: Not Applicable Patient Complaints: Cramping Time Provider Notified: 05/10/2017 20:45 Provider Notified: HADADIAN Initial Plan: EFM, SVE, CALL OB Datetime: 05/10/2017 20:31 Temperature Route: Oral Datetime: 05/10/2017 20:30 Stage of : OB Triage Maternal Assessment Level of Consciousness: Fully Conscious DTR's/Clonus: DTRs 2+; No Clonus Headache: Denies Blurred Vision: No Respiratory Effort: Unlabored; Regular Rhythm; Equal Expansion Nausea/Vomiting: Denies RUQ Epigastric Pain: Denies Facial Edema: None Fall Risk Assessment History of Falling: (0) No Secondary Diagnosis: (0) No Ambulatory Aid: (0) Bedrest/Nurse Assist IV Therapy: (0) No Gait: (0) Normal/Bedrest/Immobile Mental Status: (0) Oriented to Own Ability Fall Score: 0 Fall Risk Score Definition: No Risk: No action required Datetime: 04/16/2017 12:57 Labor Evaluation Frequency: 0 Monitor Mode: External Resting Tone Cavalero: Relaxed Heart Rate FHR Baseline Rate: 140 Monitor Mode: External US FHR Baseline Changes: No Baseline Change Variability: Moderate 6-25 bpm Accelerations: 15X15 Decelerations: None Category: Category I Pain Presence: None/Denies Datetime: 04/16/2017 12:03 Labor Evaluation Frequency: 0 Monitor Mode: External Resting Tone [place]alero: Relaxed Heart Rate FHR Baseline Rate: 130 Monitor Mode: External US FHR Baseline Changes: No Baseline Change Variability: Moderate 6-25 bpm Accelerations: 15X15 Decelerations: None Category: Category I Pain Presence: None/Denies Datetime: 04/16/2017 10:50 Labor Evaluation Frequency: 0 Monitor Mode: External Resting Tone [place]al[place]: Relaxed Heart Rate FHR Baseline Rate: 130 Monitor Mode: External US FHR Baseline Changes: No Baseline Change Variability: Moderate 6-25 bpm Accelerations: 15X15 Decelerations: None Category: Category I Pain Presence: None/Denies Datetime: 04/16/2017 09:52 Labor Evaluation Frequency: 0 Monitor Mode: External Resting Tone [place]alero: Relaxed Heart Rate FHR Baseline Rate: 130 Monitor Mode: External US FHR Baseline Changes: No Baseline Change Variability: Moderate 6-25 bpm Accelerations: 15X15 Decelerations: None Category: Category I Datetime: 04/16/2017 08:57 Monitor Mode: External Resting Tone [place]alero: Relaxed Heart Rate FHR Baseline Rate: 130 Monitor Mode: External US FHR Baseline Changes: No Baseline Change Variability: Moderate 6-25 bpm Accelerations: 15X15 Decelerations: None Category: Category I Datetime: 04/16/2017 08:36 Assessment Type: Ongoing Assessment Maternal Assessment Level of Consciousness: Fully Conscious DTR's/Clonus: DTRs 2+; No Clonus Headache: Denies Blurred Vision: No Respiratory Effort: Unlabored; Regular Rhythm; Equal Expansion Breath Sounds, Left: Clear and Equal Breath Sounds, Right: Clear and Equal Nausea/Vomiting: Denies RUQ Epigastric Pain: Denies Facial Edema: None Fall Risk Assessment History of Falling: (0) No Secondary Diagnosis: (0) No Ambulatory Aid: (0) Bedrest/Nurse Assist IV Therapy: (20) Yes Gait: (0) Normal/Bedrest/Immobile Mental Status: (0) Oriented to Own Ability Fall Score: 20 Fall Risk Score Definition: No Risk: No action required Datetime: 04/16/2017 08:15 Stage of : Antepartum Datetime: 04/16/2017 08:07 Labor Evaluation Frequency: 0 Monitor Mode: External Resting Tone [place]al[place]: Relaxed Heart Rate FHR Baseline Rate: 120 Monitor Mode: External US FHR Baseline Changes: No Baseline Change Variability: Moderate 6-25 bpm Accelerations: 15X15 Decelerations: None Category: Category I Pain Presence: None/Denies Datetime: 04/16/2017 08:00 DTR's/Clonus: DTRs 2+; No Clonus Breath Sounds, Left: Clear and Equal Breath Sounds, Right: Clear and Equal Labor Evaluation Frequency: NONE Monitor Mode: External Resting Tone [place]alero: Relaxed Heart Rate FHR Baseline Rate: 120 Monitor Mode: External US Variability: Moderate 6-25 bpm Accelerations: 15X15 Decelerations: None Category: Category I Pain Presence: None/Denies Pain Type: N/A Pain Assessment Comments: PT SLEEPING WITH EVEN UNLABORED BREATHING Datetime: 04/16/2017 07:00 Labor Evaluation Frequency: NONE Monitor Mode: External Resting Tone [place]al[place]: Relaxed Heart Rate FHR Baseline Rate: 120 Monitor Mode: External US Variability: Moderate 6-25 bpm Accelerations: 15X15 Decelerations: None Category: Category I Pain Presence: None/Denies Pain Type: N/A Datetime: 04/16/2017 06:00 DTR's/Clonus: DTRs 2+; No Clonus Labor Evaluation Frequency: NONE Monitor Mode: External Resting Tone [place]al[place]: Relaxed Heart Rate FHR Baseline Rate: 120 Variability: Moderate 6-25 bpm Accelerations: 15X15 Decelerations: None Pain Presence: None/Denies Pain Type: N/A Pain Assessment Comments: PT SLEEPING BUT EASILY AROUSED Datetime: 04/16/2017 05:59 Stage of : Antepartum Datetime: 04/16/2017 05:00 Labor Evaluation Frequency: X1 Monitor Mode: External Duration (sec)2399: 90 Quality: Mild Resting Tone [place]al[place]: Relaxed Heart Rate FHR Baseline Rate: 120 Monitor Mode: External US Variability: Moderate 6-25 bpm Accelerations: 15X15 Decelerations: None Category: Category I Pain Presence: None/Denies Pain Type: N/A Datetime: 04/16/2017 04:20 Pain Presence: None/Denies Pain Type: N/A Datetime: 04/16/2017 04:00 Stage of : Antepartum DTR's/Clonus: DTRs 2+; No Clonus Breath Sounds, Left: Clear and Equal Breath Sounds, Right: Clear and Equal Labor Evaluation Frequency: NONE Monitor Mode: External Resting Tone [place]al[place]: Relaxed Heart Rate FHR Baseline Rate: 120 Variability: Moderate 6-25 bpm Accelerations: 15X15 Decelerations: None Category: Category I Pain Presence: None/Denies Pain Type: N/A Pain Assessment Comments: PT SLEEPING BUT EASILY AROUSED Datetime: 04/16/2017 02:59 Labor Evaluation Frequency: NONE Monitor Mode: External Resting Tone [place]al[place]: Relaxed Heart Rate FHR Baseline Rate: 120 Variability: Moderate 6-25 bpm Accelerations: 15X15 Decelerations: None Category: Category I Pain Presence: None/Denies Pain Type: N/A Pain Assessment Comments: PT REMAINS ASLEEP WITH EVEN UNLABORED BREATHING Datetime: 04/16/2017 02:17 Stage of : Antepartum Datetime: 04/16/2017 02:00 DTR's/Clonus: DTRs 2+; No Clonus Labor Evaluation Frequency: NONE Monitor Mode: External Resting Tone [place]al[place]: Relaxed Heart Rate FHR Baseline Rate: 130 Variability: Moderate 6-25 bpm Accelerations: 15X15 Decelerations: None Category: Category I Pain Presence: None/Denies Pain Type: N/A Pain Assessment Comments: PT SLEEPING WITH EVEN UNLABORED BREATHING Datetime: 04/16/2017 01:00 Labor Evaluation Frequency: x33 Monitor Mode: External Duration (sec)2399: 50-80 Quality: Mild Resting Tone [place]al[place]: Relaxed Heart Rate FHR Baseline Rate: 130 Monitor Mode: External US Variability: Moderate 6-25 bpm Accelerations: 15X15 Decelerations: None Category: Category I Pain Presence: None/Denies Pain Type: N/A Datetime: 04/16/2017 00:00 Stage of : Antepartum DTR's/Clonus: DTRs 2+; No Clonus Breath Sounds, Left: Clear and Equal Breath Sounds, Right: Clear and Equal Labor Evaluation Frequency: NONE Monitor Mode: External Heart Rate FHR Baseline Rate: 130 Monitor Mode: External US Variability: Moderate 6-25 bpm Accelerations: 15X15 Decelerations: None Category: Category I Datetime: 04/15/2017 23:46 Stage of : Antepartum Temperature Route: Oral Datetime: 04/15/2017 23:23 Stage of : Antepartum Datetime: 04/15/2017 23:00 Labor Evaluation Frequency: NONE Monitor Mode: External Resting Tone [place]al[place]: Relaxed Heart Rate FHR Baseline Rate: 130 Variability: Moderate 6-25 bpm Accelerations: 15X15 Decelerations: None Category: Category I Datetime: 04/15/2017 22:00 DTR's/Clonus: DTRs 2+; No Clonus Labor Evaluation Frequency: NONE Monitor Mode: External Resting Tone [place]al[place]: Relaxed Heart Rate FHR Baseline Rate: 130 Variability: Moderate 6-25 bpm Accelerations: 10X10 Decelerations: None Category: Category I Pain Presence: None/Denies Pain Type: N/A Datetime: 04/15/2017 21:00 Stage of : Antepartum Labor Evaluation Frequency: X1 Monitor Mode: External Duration (sec)2399: 60 Quality: Mild Resting Tone [place]al[place]: Relaxed Heart Rate FHR Baseline Rate: 160 Variability: Moderate 6-25 bpm Accelerations: 15X15 Decelerations: None Category: Category I Pain Presence: None/Denies Pain Type: N/A Datetime: 04/15/2017 20:40 Comments: BACK IN BED Datetime: 04/15/2017 20:00 Labor Evaluation Frequency: NONE Monitor Mode: External Resting Tone [place]alero: Relaxed Heart Rate FHR Baseline Rate: 130 Variability: Moderate 6-25 bpm Accelerations: None Decelerations: None Category: Category I Pain Presence: None/Denies Pain Type: N/A Datetime: 04/15/2017 19:44 Stage of : Antepartum Assessment Type: Ongoing Assessment Maternal Assessment Level of Consciousness: Fully Conscious DTR's/Clonus: DTRs 2+; No Clonus Headache: Denies Blurred Vision: No Respiratory Effort: Unlabored; Regular Rhythm; Equal Expansion Breath Sounds, Left: Clear and Equal Breath Sounds, Right: Clear and Equal Nausea/Vomiting: Denies RUQ Epigastric Pain: Denies Lower Extremities Edema: None Degree: None Upper Extremities Edema: None Degree: None Facial Edema: None Temperature Route: Oral Fall Risk Assessment History of Falling: (0) No Secondary Diagnosis: (0) No Ambulatory Aid: (0) Bedrest/Nurse Assist IV Therapy: (0) No Gait: (0) Normal/Bedrest/Immobile Mental Status: (0) Oriented to Own Ability Fall Score: 0 Fall Risk Score Definition: No Risk: No action required Contraction Comments: PT STATES SHE FEELS SOME CRAMPING Comments: PT STATES + FM Pain Presence: None/Denies Pain Type: N/A Amniotic Fluid Amount: None Vaginal Bleeding: None Datetime: 04/15/2017 19:00 Labor Evaluation Frequency: 0 Monitor Mode: External Resting Tone [place]alero: Relaxed Heart Rate FHR Baseline Rate: 120 Monitor Mode: External US FHR Baseline Changes: No Baseline Change Variability: Moderate 6-25 bpm Accelerations: 15X15 Decelerations: None Category: Category I Datetime: 04/15/2017 18:37 Labor Evaluation Frequency: 0 Monitor Mode: External Resting Tone [place]alero: Relaxed Heart Rate FHR Baseline Rate: 130 Monitor Mode: External US FHR Baseline Changes: No Baseline Change Variability: Moderate 6-25 bpm Accelerations: 15X15 Decelerations: None Category: Category I Datetime: 04/15/2017 18:35 Vaginal Exam Dilatation (cms): 0.0 Effacement (%): 0 Station: -4 Exam By: dr foroohar Membrane Status: Intact (Annotations: no blood noted on gloves) Datetime: 04/15/2017 18:00 Assessment Type: Ongoing Assessment Maternal Assessment Level of Consciousness: Fully Conscious DTR's/Clonus: DTRs 1+; No Clonus Headache: Denies Blurred Vision: No Respiratory Effort: Unlabored; Regular Rhythm Datetime: 04/15/2017 17:53 Labor Evaluation Frequency: 0 Monitor Mode: External Pattern: Normal: <= 5 Contractions in 10 Minutes Resting Tone Cavalero: Relaxed Heart Rate FHR Baseline Rate: 130 Monitor Mode: External US FHR Baseline Changes: No Baseline Change Variability: Moderate 6-25 bpm Accelerations: 10X10 Decelerations: None Category: Category I Datetime: 04/15/2017 17:48 Stage of : Antepartum Datetime: 04/15/2017 17:00 Labor Evaluation Frequency: 0 Monitor Mode: External Resting Tone [place]alero: Relaxed Heart Rate FHR Baseline Rate: 130 Monitor Mode: External US FHR Baseline Changes: No Baseline Change Variability: Moderate 6-25 bpm Accelerations: 15X15 Decelerations: None Category: Category I Datetime: 04/15/2017 16:53 Stage of : Antepartum Pain Goal: 0 Datetime: 04/15/2017 16:00 Assessment Type: Ongoing Assessment Maternal Assessment Level of Consciousness: Fully Conscious DTR's/Clonus: DTRs 2+; No Clonus Headache: Denies Blurred Vision: Yes Respiratory Effort: Unlabored; Regular Rhythm Breath Sounds, Left: Clear and Equal Breath Sounds, Right: Clear and Equal Labor Evaluation Frequency: 0 Monitor Mode: External Resting Tone [place]al[place]: Relaxed Heart Rate FHR Baseline Rate: 130 Monitor Mode: External US FHR Baseline Changes: No Baseline Change Variability: Moderate 6-25 bpm Accelerations: 10X10 Decelerations: None Category: Category I Datetime: 04/15/2017 15:00 Labor Evaluation Frequency: 0 Monitor Mode: External Resting Tone [place]alero: Relaxed Heart Rate FHR Baseline Rate: 130 Monitor Mode: External US FHR Baseline Changes: No Baseline Change Variability: Moderate 6-25 bpm Accelerations: 10X10 Decelerations: None Category: Category I Datetime: 04/15/2017 14:52 Stage of : Antepartum Pain Assessment Pain Scale: 0 Pain Presence: None/Denies Pain Goal: 0 Datetime: 04/15/2017 14:00 Assessment Type: Ongoing Assessment Maternal Assessment Level of Consciousness: Fully Conscious DTR's/Clonus: DTRs 2+; No Clonus Headache: Denies Respiratory Effort: Unlabored; Regular Rhythm Labor Evaluation Frequency: 0 Monitor Mode: External Pattern: Normal: <= 5 Contractions in 10 Minutes Resting Tone [place]alero: Relaxed Heart Rate FHR Baseline Rate: 130 Monitor Mode: External US FHR Baseline Changes: No Baseline Change Variability: Moderate 6-25 bpm Accelerations: 15X15 Decelerations: None Category: Category I Datetime: 04/15/2017 13:52 Stage of : Antepartum Pain Assessment Pain Scale: 0 Pain Presence: None/Denies Datetime: 04/15/2017 13:26 Labor Evaluation Frequency: 0 Monitor Mode: External Pattern: Normal: <= 5 Contractions in 10 Minutes Resting Tone [place]alero: Relaxed Monitor Mode: External US Datetime: 04/15/2017 12:52 Stage of : Antepartum Pain Assessment Pain Scale: 0 Pain Presence: None/Denies Datetime: 04/15/2017 12:41 Labor Evaluation Frequency: 0 Monitor Mode: External Pattern: 0 Resting Tone [place]alero: Relaxed Heart Rate FHR Baseline Rate: 130 Monitor Mode: External US FHR Baseline Changes: No Baseline Change Variability: Moderate 6-25 bpm Accelerations: 15X15 Decelerations: None Category: Category I Datetime: 04/15/2017 12:35 Stage of : Antepartum Datetime: 04/15/2017 12:09 Assessment Type: Ongoing Assessment Maternal Assessment Level of Consciousness: Fully Conscious DTR's/Clonus: DTRs 2+; No Clonus Headache: Denies Blurred Vision: No Respiratory Effort: Unlabored Breath Sounds, Left: Clear and Equal Breath Sounds, Right: Clear and Equal Datetime: 04/15/2017 12:05 Stage of : Antepartum Pain Assessment Pain Scale: 0 Pain Presence: None/Denies Datetime: 04/15/2017 12:00 Labor Evaluation Frequency: 0 Monitor Mode: External Resting Tone [place]al[place]: Relaxed Heart Rate FHR Baseline Rate: 125 Monitor Mode: External US FHR Baseline Changes: No Baseline Change Accelerations: 10X10 Decelerations: None Category: Category I Datetime: 04/15/2017 11:47 Stage of : Antepartum Datetime: 04/15/2017 11:00 Labor Evaluation Frequency: 0 Monitor Mode: External Resting Tone [place]al[place]: Relaxed Heart Rate FHR Baseline Rate: 135 Monitor Mode: External US FHR Baseline Changes: No Baseline Change Variability: Moderate 6-25 bpm Accelerations: 15X15 Decelerations: None Category: Category I Datetime: 04/15/2017 10:10 Assessment Type: Ongoing Assessment Maternal Assessment Level of Consciousness: Fully Conscious DTR's/Clonus: DTRs 2+ Headache: Denies Blurred Vision: No Respiratory Effort: Unlabored; Regular Rhythm Datetime: 04/15/2017 10:06 Stage of : Antepartum Pain Assessment Pain Scale: 0 Pain Presence: None/Denies Datetime: 04/15/2017 10:00 Labor Evaluation Frequency: 0 Monitor Mode: External Resting Tone [place]al[place]: Relaxed Heart Rate FHR Baseline Rate: 130 Monitor Mode: External US FHR Baseline Changes: No Baseline Change Variability: Moderate 6-25 bpm Accelerations: 15X15 Decelerations: None Category: Category I Datetime: 04/15/2017 09:49 Assessment Type: Ongoing Assessment Maternal Assessment Level of Consciousness: Fully Conscious DTR's/Clonus: DTRs 2+; No Clonus Headache: Denies Blurred Vision: No Respiratory Effort: Unlabored; Regular Rhythm; Equal Expansion Breath Sounds, Left: Clear and Equal Breath Sounds, Right: Clear and Equal Nausea/Vomiting: Denies RUQ Epigastric Pain: Denies Lower Extremities Edema: None Degree: None Upper Extremities Edema: None Degree: None Facial Edema: None Fall Risk Assessment History of Falling: (0) No Secondary Diagnosis: (0) No Ambulatory Aid: (0) Bedrest/Nurse Assist IV Therapy: (20) Yes Gait: (0) Normal/Bedrest/Immobile Mental Status: (0) Oriented to Own Ability Fall Score: 20 Fall Risk Score Definition: No Risk: No action required Datetime: 04/15/2017 09:48 Labor Evaluation Frequency: SKIN CARE DONE Monitor Mode: External Heart Rate FHR Baseline Rate: 125 Monitor Mode: External US FHR Baseline Changes: No Baseline Change Variability: Moderate 6-25 bpm Accelerations: 10X10 Decelerations: None Category: Category I Datetime: 04/15/2017 09:46 Stage of : Antepartum Temperature Route: Oral Pain Assessment Pain Scale: 0 Pain Presence: Intermittent Pain Type: Contraction Pain Location: Abdomen; Back Pain Goal: 0 Pain Relief Measures: Comfort Measures Datetime: 04/15/2017 08:47 Stage of : Antepartum Pain Assessment Pain Scale: 0 Pain Presence: PT ASALEEP Datetime: 04/15/2017 08:38 Labor Evaluation Frequency: X4 Monitor Mode: External Quality: Mild Resting Tone [place]al[place]: Relaxed Contraction Comments: PT SLEEPING Heart Rate FHR Baseline Rate: 120 Monitor Mode: External US FHR Baseline Changes: No Baseline Change Variability: Moderate 6-25 bpm Accelerations: 10X10 Decelerations: None Category: Category I Datetime: 04/15/2017 08:32 Stage of : Antepartum Datetime: 04/15/2017 08:04 Labor Evaluation Frequency: X1 (Annotations: UTERINE IRRIT) Monitor Mode: External Duration (sec)2399: 30 Resting Tone [place]al[place]: Relaxed Contraction Comments: PT SLEEPING Heart Rate FHR Baseline Rate: 120 Monitor Mode: External US FHR Baseline Changes: No Baseline Change Variability: Moderate 6-25 bpm Accelerations: 10X10 Decelerations: None Category: Category I Datetime: 04/15/2017 07:00 Labor Evaluation Frequency: x2 Monitor Mode: External Duration (sec)2399: 40-60 Quality: Mild Resting Tone [place]: Relaxed Contraction Comments: pt resting without apparent distress. Heart Rate FHR Baseline Rate: 115 Monitor Mode: External US FHR Baseline Changes: No Baseline Change Variability: Moderate 6-25 bpm Accelerations: 15X15 Decelerations: None Category: Category I Datetime: 04/15/2017 06:00 Labor Evaluation Frequency: x2 Monitor Mode: External Duration (sec)2399: 40-90 Quality: Mild Resting Tone [place]: Relaxed Contraction Comments: pt resting without apparent distress. Heart Rate FHR Baseline Rate: 120 Monitor Mode: External US FHR Baseline Changes: No Baseline Change Variability: Moderate 6-25 bpm Accelerations: 15X15 Decelerations: None Category: Category I Datetime: 04/15/2017 05:00 Labor Evaluation Frequency: none Monitor Mode: External Resting Tone [place]al[place]: Relaxed Heart Rate FHR Baseline Rate: 120 Monitor Mode: External US FHR Baseline Changes: No Baseline Change Variability: Moderate 6-25 bpm Accelerations: 15X15 Decelerations: None Category: Category I Datetime: 04/15/2017 04:00 Labor Evaluation Frequency: x1 Monitor Mode: External Duration (sec)2399: 50 Quality: Mild Resting Tone [place]: Relaxed Contraction Comments: pt without complaint of uc pain. Heart Rate FHR Baseline Rate: 115 Monitor Mode: External US FHR Baseline Changes: No Baseline Change Variability: Moderate 6-25 bpm Accelerations: 15X15 Decelerations: None Category: Category I Pain Assessment Pain Scale: 0 Pain Presence: None/Denies Datetime: 04/15/2017 03:00 Labor Evaluation Frequency: none Monitor Mode: External Resting Tone [place]: Relaxed Contraction Comments: pt resting without apparent distress. Heart Rate FHR Baseline Rate: 120 Monitor Mode: External US FHR Baseline Changes: No Baseline Change Variability: Moderate 6-25 bpm Accelerations: 15X15 Decelerations: None Category: Category I Datetime: 04/15/2017 02:00 Labor Evaluation Frequency: NONE Monitor Mode: External Duration (sec)2399: NONE Pattern: Normal: <= 5 Contractions in 10 Minutes Heart Rate FHR Baseline Rate: 120 FHR Baseline Changes: No Baseline Change Variability: Moderate 6-25 bpm Accelerations: 10X10 Datetime: 04/15/2017 00:02 Stage of : Antepartum Temperature Route: Oral Datetime: 04/15/2017 00:00 Labor Evaluation Frequency: none Monitor Mode: External Resting Tone [place]: Relaxed Heart Rate FHR Baseline Rate: 125 Monitor Mode: External US FHR Baseline Changes: No Baseline Change Variability: Moderate 6-25 bpm Accelerations: 15X15 Decelerations: None Category: Category I Pain Assessment Pain Scale: 2 Pain Presence: Intermittent Pain Type: Cramping Pain Location: Abdomen Pain Goal: 0 Datetime: 04/14/2017 23:00 Labor Evaluation Frequency: none Monitor Mode: External Resting Tone [place]: Relaxed Heart Rate FHR Baseline Rate: 130 Monitor Mode: External US FHR Baseline Changes: No Baseline Change Variability: Moderate 6-25 bpm Accelerations: 15X15 Decelerations: None Category: Category I Pain Assessment Pain Scale: 0 Pain Presence: None/Denies Datetime: 04/14/2017 22:00 Labor Evaluation Frequency: none Monitor Mode: External Resting Tone [place]: Relaxed Heart Rate FHR Baseline Rate: 130 Monitor Mode: External US FHR Baseline Changes: No Baseline Change Variability: Moderate 6-25 bpm Accelerations: 15X15 Decelerations: None Category: Category I Datetime: 04/14/2017 21:00 Labor Evaluation Frequency: x1 Monitor Mode: External Duration (sec)2399: 50 Quality: Mild Resting Tone [place]: Relaxed Contraction Comments: pt without complaint at this time. Heart Rate FHR Baseline Rate: 130 Monitor Mode: External US FHR Baseline Changes: No Baseline Change Variability: Moderate 6-25 bpm Decelerations: None Category: Category I Datetime: 04/14/2017 20:00 Labor Evaluation Frequency: x2 Monitor Mode: External Duration (sec)2399: 50-60 Quality: Mild Resting Tone [place]: Relaxed Contraction Comments: pt c/o cramping at times. Heart Rate FHR Baseline Rate: 130 Monitor Mode: External US FHR Baseline Changes: No Baseline Change Variability: Moderate 6-25 bpm Accelerations: 15X15 Decelerations: None Category: Category I Pain Assessment Pain Scale: 3 Pain Presence: Intermittent Pain Type: Cramping Pain Location: Abdomen; Back Pain Goal: 0 Pain Relief Measures: Comfort Measures Pain Assessment Comments: pt advised to drink more water. Datetime: 04/14/2017 19:49 Assessment Type: Ongoing Assessment Maternal Assessment Level of Consciousness: Fully Conscious DTR's/Clonus: DTRs 2+; No Clonus Headache: Denies Blurred Vision: No Respiratory Effort: Unlabored; Regular Rhythm; Equal Expansion Breath Sounds, Left: Clear and Equal Breath Sounds, Right: Clear and Equal Nausea/Vomiting: Denies RUQ Epigastric Pain: Denies Lower Extremities Edema: None Degree: None Upper Extremities Edema: None Degree: None Facial Edema: None Fall Risk Assessment History of Falling: (0) No Secondary Diagnosis: (0) No Ambulatory Aid: (0) Bedrest/Nurse Assist IV Therapy: (20) Yes Gait: (0) Normal/Bedrest/Immobile Mental Status: (0) Oriented to Own Ability Fall Score: 20 Fall Risk Score Definition: No Risk: No action required Datetime: 04/14/2017 19:47 Stage of : Antepartum Temperature Route: Oral Datetime: 04/14/2017 18:08 Maternal Assessment Level of Consciousness: Fully Conscious DTR's/Clonus: DTRs 2+ Headache: Denies Blurred Vision: No Respiratory Effort: Unlabored Nausea/Vomiting: Denies Labor Evaluation Frequency: 0 Monitor Mode: Palpation Pain Presence: None/Denies Datetime: 04/14/2017 17:02 Stage of : Antepartum Maternal Assessment Level of Consciousness: Fully Conscious Labor Evaluation Frequency: 0/hr Monitor Mode: External Heart Rate FHR Baseline Rate: 120 Monitor Mode: External US Variability: Moderate 6-25 bpm Accelerations: 15X15 Decelerations: None Pain Presence: None/Denies Vaginal Bleeding: None Datetime: 04/14/2017 16:52 Heart Rate FHR Baseline Rate: 120 Variability: Moderate 6-25 bpm Accelerations: 10X10 Decelerations: None Datetime: 04/14/2017 16:37 Maternal Assessment Level of Consciousness: Fully Conscious DTR's/Clonus: DTRs 2+ Headache: Denies Blurred Vision: No Nausea/Vomiting: Denies RUQ Epigastric Pain: Denies Monitor Mode: External US Pain Presence: None/Denies Datetime: 04/14/2017 16:03 Stage of : Antepartum Maternal Assessment Level of Consciousness: Fully Conscious DTR's/Clonus: DTRs 2+ Headache: Denies Blurred Vision: No Respiratory Effort: Unlabored Nausea/Vomiting: Denies RUQ Epigastric Pain: Denies Labor Evaluation Frequency: 0/hr Monitor Mode: External Heart Rate FHR Baseline Rate: 120 Monitor Mode: External US Variability: Moderate 6-25 bpm Accelerations: 15X15 Decelerations: None Pain Presence: None/Denies Vaginal Bleeding: None Datetime: 04/14/2017 14:40 Maternal Assessment Level of Consciousness: Fully Conscious DTR's/Clonus: DTRs 2+ Headache: Denies Blurred Vision: No Respiratory Effort: Unlabored Nausea/Vomiting: Denies RUQ Epigastric Pain: Denies Pain Presence: None/Denies Datetime: 04/14/2017 14:00 Stage of : Antepartum Maternal Assessment Level of Consciousness: Fully Conscious Headache: Denies Nausea/Vomiting: Denies RUQ Epigastric Pain: Denies Labor Evaluation Frequency: 0/hr Monitor Mode: External Heart Rate FHR Baseline Rate: 120 Monitor Mode: External US Variability: Moderate 6-25 bpm Accelerations: 15X15 Decelerations: None Pain Assessment Pain Scale: 0 Pain Presence: None/Denies Vaginal Bleeding: None Datetime: 04/14/2017 13:00 Stage of : Antepartum Maternal Assessment Level of Consciousness: Fully Conscious Headache: Denies Nausea/Vomiting: Denies RUQ Epigastric Pain: Denies Labor Evaluation Frequency: 0/hr Monitor Mode: External Heart Rate FHR Baseline Rate: 120 Monitor Mode: External US Variability: Moderate 6-25 bpm Accelerations: 15X15 Decelerations: None Pain Assessment Pain Scale: 0 Pain Presence: None/Denies Vaginal Bleeding: None Datetime: 04/14/2017 12:00 Stage of : Antepartum Maternal Assessment Level of Consciousness: Fully Conscious DTR's/Clonus: DTRs 2+ Headache: Denies Nausea/Vomiting: Denies RUQ Epigastric Pain: Denies Labor Evaluation Frequency: 0/hr Monitor Mode: External Heart Rate FHR Baseline Rate: 120 Monitor Mode: External US Variability: Moderate 6-25 bpm Accelerations: 15X15 Decelerations: None Pain Assessment Pain Scale: 0 Pain Presence: None/Denies Vaginal Bleeding: None Datetime: 04/14/2017 11:00 Stage of : Antepartum Maternal Assessment Level of Consciousness: Fully Conscious Headache: Denies Nausea/Vomiting: Denies RUQ Epigastric Pain: Denies Labor Evaluation Frequency: 0/hr Monitor Mode: External Heart Rate FHR Baseline Rate: 120 Monitor Mode: External US Variability: Moderate 6-25 bpm Accelerations: 15X15 Decelerations: None Pain Assessment Pain Scale: 0 Pain Presence: None/Denies Vaginal Bleeding: None Datetime: 04/14/2017 10:11 Stage of : Antepartum Maternal Assessment Level of Consciousness: Fully Conscious DTR's/Clonus: DTRs 2+ Headache: Denies Nausea/Vomiting: Denies RUQ Epigastric Pain: Denies Labor Evaluation Frequency: 0/hr Monitor Mode: External Heart Rate FHR Baseline Rate: 120 Monitor Mode: External US Variability: Moderate 6-25 bpm Accelerations: 15X15 Decelerations: None Pain Assessment Pain Scale: 0 Pain Presence: None/Denies Vaginal Bleeding: None Datetime: 04/14/2017 08:20 Stage of : Antepartum Maternal Assessment Level of Consciousness: Fully Conscious Headache: Denies Nausea/Vomiting: Denies RUQ Epigastric Pain: Denies Labor Evaluation Frequency: 0/hr Monitor Mode: External Heart Rate FHR Baseline Rate: 120 Monitor Mode: External US Variability: Moderate 6-25 bpm Accelerations: 15X15 Decelerations: None Datetime: 04/14/2017 07:27 Vaginal Exam Dilatation (cms): 0.0 Effacement (%): 0 Station: -4 Exam By: vc Presentation 'A': Unable to Assess Datetime: 04/14/2017 07:20 Assessment Type: Ongoing Assessment Maternal Assessment Level of Consciousness: Fully Conscious DTR's/Clonus: DTRs 2+; No Clonus Headache: Denies Blurred Vision: No Respiratory Effort: Unlabored; Regular Rhythm; Equal Expansion Breath Sounds, Left: Clear and Equal Breath Sounds, Right: Clear and Equal Nausea/Vomiting: Denies RUQ Epigastric Pain: Denies Lower Extremities Edema: None Upper Extremities Edema: None Facial Edema: None Fall Risk Assessment History of Falling: (0) No Secondary Diagnosis: (0) No Ambulatory Aid: (0) Bedrest/Nurse Assist IV Therapy: (20) Yes Gait: (0) Normal/Bedrest/Immobile Mental Status: (0) Oriented to Own Ability Fall Score: 20 Fall Risk Score Definition: No Risk: No action required Datetime: 04/14/2017 07:19 Heart Rate FHR Baseline Rate: 120 Variability: Moderate 6-25 bpm Accelerations: 15X15 Comments: ega 30.3 Datetime: 04/14/2017 07:13 Resting Tone Cavalero: Relaxed Pain Assessment Pain Scale: 7 Pain Presence: Constant Pain Type: Sharp Pain Location: Abdomen Pain Assessment Comments: pt. states constant pain started 2 minutes ago Datetime: 04/14/2017 06:15 Maternal Assessment Level of Consciousness: Fully Conscious DTR's/Clonus: No Clonus Headache: Denies Blurred Vision: No Nausea/Vomiting: Denies RUQ Epigastric Pain: Denies Facial Edema: None Labor Evaluation Frequency: irregular Duration (sec)2399: 40-60 Quality: Mild Pattern: Normal: <= 5 Contractions in 10 Minutes Resting Tone Cavalero: Relaxed Heart Rate FHR Baseline Rate: 125 Monitor Mode: External US Variability: Moderate 6-25 bpm Accelerations: 10X10 Decelerations: None Category: Category I Pain Assessment Pain Scale: 2 Pain Presence: Intermittent Pain Type: Contraction Pain Location: Abdomen; Back Pain Relief Measures: Comfort Measures Membrane Status: Intact Datetime: 04/14/2017 05:14 Pain Assessment Comments: on her side. lost of contact Datetime: 04/14/2017 01:19 EGA: 30.3 Datetime: 04/13/2017 22:36 Heart Rate FHR Baseline Rate: 130 Monitor Mode: External US Comments: EFM replaced Datetime: 04/13/2017 19:31 Fall Score: 0 Fall Risk Score Definition: No Risk: No action required Datetime: 04/13/2017 17:04 Fall Score: 0 Fall Risk Score Definition: No Risk: No action required Datetime: 04/13/2017 16:20 EGA: 30.2 Datetime: 03/09/2017 17:26 EGA: 30.2 Datetime: 03/09/2017 13:27 Fall Score: 0 Fall Risk Score Definition: No Risk: No action required Datetime: 03/09/2017 13:24 EGA: 25.2
--- NOTE | 2017-05-11 02:18 | PN ---
Triage Information Date/Time Reason for visit: Uterine contractions Weeks of Gestation 34 /Para Diabetes: none Hypertention: none Additional information 26 Year-old with SIUP at 34 wks presents with a chief complaint of UCS. She has been receiving her care with [facility]. She states good movement. She denies nausea, vomiting, shortness of breath, chest pain, headache, visual changes, vaginal bleeding or LOF. Objective Heart Rate: 140's Contractions: < 5 Minutes Apart Exam General: Patient appears well, alert and oriented, NAD, appropriate mood and affect ABD: gravid, soft, non-tender. Back: No CVA tenderness (B/L) LE: No clubbing, cyanosis, edema, thigh or calf tenderness bilaterally FHT: 140 bpm , moderate variability with acceleration, no deceleration-category I Contractions: Q 2-4 min, mild by palpation SVE: FT/30/-3/ceph/intact membrane Results/Medications Results 24 hrs Laboratory Tests Test 05/10/17 20:30 Urine Color YELLOW Urine Clarity CLEAR Urine pH 5.0 Urine Specific [place] 1.006 Urine Ketones NEGATIVE Urine Nitrite NEGATIVE Urine Bilirubin NEGATIVE Urine Urobilinogen NEGATIVE Urine Leukocyte Esterase TRACE A Urine Microscopic RBC 2 Urine Microscopic WBC 1 Urine Squamous Epithelial Cells FEW Urine Bacteria FEW A Urine Mucus FEW A Urine Hemoglobin 1+ H Urine Glucose NEGATIVE Urine Total Protein NEGATIVE Assessment/Plan 26 Year-old with SIUP at 34 wks with PTC. She has h/o PTC at 27 wks s/p receiving BMZx2. She recived terbutaline x2 with po hydration. No further ucs - FHR: No sign of metabolic acidosis- Category I - Continuous EFM, toco - Contractions: None. - Symptoms and sign of labor, preeclampsia, kick count discussed with patient, she voiced understanding. All of her questions answered. - Patient was discharged home in stable condition with the appropriate discharge instructions provided. I would like patient to have close follow-up with her primary physician or outpatient clinic in 1-2 days or return to the ER for worsening symptoms or any other urgent concerns. DANIEL GOODWIN May 11, 2017 02:18
== END 2017-05-10 23:47 | disposition home or self-care (01) ==
LOC: OBT 20:25 → L-D 20:27 → OBT 23:47
PROVIDERS: ATTEND Obstetrics & Gynecology
DX: O62.9 Abnormality of forces of labor, unspecified (principal); Z3A.34 34 weeks gestation of pregnancy
CPT/HCPCS: 81001; 96372; J3105; Z7500; G0463

== ENCOUNTER 2017-05-26 16:26 | Inpatient (IN) | payer OTHER ==
[~2017-05-26] VITALS: Ht 152.4 cm; Wt 73.7 kg
[2017-05-26 16:48] VITALS: BP 115/65; Ht 152.4 cm; Wt 73.7 kg
[2017-05-26] MEDS ORDERED: METHYLERGONOVINE 0.2 MG INJ IM PRN (17:00)
[2017-05-26] MEDS ORDERED: CARBOPROST 250 MCG INJ IM PRN (17:00)
[2017-05-26] MEDS ORDERED: OXYTOCIN 30 UNITS/LR 500 ML IV SCH (17:00)
[2017-05-26] MEDS ORDERED: CEFAZOLIN 2 GM/50 ML (PMX) 50 ML IV SCH (17:00)
[2017-05-26] MEDS ORDERED: MISOPROSTOL 200 MCG TAB PR PRN (17:00)
[2017-05-26] MEDS ORDERED: OXYTOCIN 30 UNITS/LR 500 ML IV PRN (17:00)
[2017-05-26 17:42] LABS: BASOPHILS % 0.3 % (0.0-2.0); EOSINOPHILS # 0.3 10^3/ul (0.0-0.5); EOSINOPHILS % 4.4 % (0.0-7.0); HEMATOCRIT 29.2 % (37.0-47.0); HEMOGLOBIN 9.7 g/dl (12.0-16.0); LYMPHOCYTES # 1.4 10^3/ul (0.8-2.9); LYMPHOCYTES % 21.6 % (15.0-51.0); MEAN CORPUSCULAR HGB CONC 33.2 g/dl (32.0-37.0); MEAN CORPUSCULAR VOLUME 87.2 fl (82.0-101.0); MEAN PLATELET VOLUME 11.6 fl (7.4-10.4); MONOCYTE # 0.5 10^3/ul (0.3-0.9); MONOCYTES % 8.4 % (0.0-11.0); NEUTROPHIL # 4.1 10^3/ul (1.6-7.5); NEUTROPHILS % 65.1 % (39.0-77.0); PLATELET COUNT 194 10^3/UL (140-415); RED BLOOD COUNT 3.35 10^6/ul (4.20-5.40); RED CELL DISTRIBUTION WIDTH 12.7 % (11.5-14.5); WHITE BLOOD COUNT 6.3 10^3/ul (4.8-10.8)
[2017-05-26 17:57] LABS: INR 0.99; PROTIME 13.1 Sec (12.2-14.2)
[2017-05-26 17:58] LABS: PARTIAL THROMBOPLASTIN TIME 29.4 Sec (25.0-35.0)
[2017-05-26] MEDS: LACTATED RINGER'S 1,000 ML IV SCH ×2 (17:59→20:39)
[2017-05-26 21:32] LABS: BARBITURATES Negative (NEGATIVE); BENZODIAZEPINES Negative (NEGATIVE); CANNABINOIDS Negative (NEGATIVE); COCAINE Negative (NEGATIVE); OPIATES Negative (NEGATIVE)
[2017-05-27] MEDS: LACTATED RINGER'S 1,000 ML IV SCH ×3 (03:58→21:31)
[2017-05-27] MEDS ORDERED: morphine SULFATE/PF (10 MG/10 ML) INJ ONE (05:18)
[2017-05-27] MEDS ORDERED: FENTAnyl 50 MCG/ML VIAL ONE (05:18)
--- NOTE | 2017-05-27 05:29 | HP ---
Date/Time of Note Date/Time of Note DATE: 05/27/17 TIME: 05:28 OB - History Hx of Present Free Text/Dictation AT 37 WEEKS SENT IN BY [facility] FOR IUGR , OLIGO Care: Good Care Ultrasounds: Normal mid trimester US Obstetrical Complications: None Medical Complications: None Past Family/Social History * Past Medical, Surgical, Family and Obstetric Histories reviewed from chart. OB Admission Exam Vital Signs Vital Signs Vital Signs Date Time Temp Pulse Resp B/P Pulse Ox O2 Delivery O2 Flow Rate FiO2 05/26/17 16:48 97.8 115/65 Room Air Physical Exam HEENT: WNL Heart: Rhythm Normal Lungs: Clear, Equal Abdomen: WNL Extremities: Normal Reflexes: Normal Cervical Dilatation: None Effacement: 0% Station: Ballotable Membranes: Intact Accelerations: Accelerations Present Decelerations: No Decelerations Varibility: Moderate Contractions on Admission: None Last 72 hours Lab Results CBC & BMP 05/26/17 17:21 OB Assessment/Plan Reason for admission: section Plan: Section MEI NIXON MD May 27, 2017 05:29
[2017-05-27] MEDS ORDERED: ONDANSETRON 4 MG INJ ONE (05:42)
[2017-05-27] MEDS ORDERED: METOCLOPRAMIDE 10 MG INJ ONE (05:42)
[2017-05-27] MEDS ORDERED: OXYTOCIN 30 UNITS/LR 500 ML IV ONE (05:53)
[2017-05-27] MEDS ORDERED: METHYLENE BLUE 1% 10 ML INJ ONE (05:54)
[2017-05-27] MEDS ORDERED: PHENYLephrine (100 MCG/ML) 5ML SYG ONE (05:55)
[2017-05-27] MEDS ORDERED: PROCHLORPERAZINE 10 MG INJ IV PRN (06:00)
[2017-05-27] MEDS ORDERED: FENTAnyl 50 MCG/ML VIAL IV PRN (06:00)
[2017-05-27] MEDS ORDERED: DIPHENHYDRAMINE 50 MG INJ IV PRN ×2 (06:00→07:00)
[2017-05-27] MEDS ORDERED: KETOROLAC 30 MG INJ IV PRN ×2 (06:00→07:00)
[2017-05-27] MEDS ORDERED: HYDROmorphONE (0.2 MG/ML) 10ML SYG IV PRN (06:00)
[2017-05-27] MEDS ORDERED: MEPERIDINE 25 MG INJ IV PRN (06:00)
[2017-05-27] MEDS ORDERED: ONDANSETRON 4 MG INJ IV PRN ×2 (06:00→07:00)
[2017-05-27] MEDS ORDERED: METHYLENE BLUE 1% 10 ML INJ ZFS ONE (06:00)
--- NOTE | 2017-05-27 06:18 | OPR ---
Operative Report Planned Procedure Procedure date May 27, 2017 Procedure(s) REPEAT C/S Performed by see signature line Assisting provider: DAVON REVELES MD Anesthesia Type: spinal Procedure Description Under satisfactory [SPINAL ] anesthesia, the patient was prepped and draped and placed in a supine position, tilted to the left. Pfannenstiel incision was made , carried through the subcutaneous tissue. Bleeders brought under control with electrocautery. Fascia incised to the length of the incision. Rectus muscles from the fascia, divided midline. Peritoneum exposed, entered through a transverse incision. Exploration of abdomen revealed gravid uterus. Bladder flap was developed. Transverse incision was made in the lower segment of the uterus. Amniotic sac ruptured. [CLEAR] amniotic fluid noted. [] Nasal oropharyngeal suction was performed. The baby was handed to the team for immediate attention. The placenta was delivered manually intact. Uterine cavity was cleaned with wet sponge and drainage established. Uterus closed in 2 layers using ONE MONOCRYL [] in continuous fashion. Peritoneal cavity irrigated with warm saline. Sponge, needle and instrument count reported to be correct. Abdominal peritoneum closed with [ONE MONOCRYL] continuously. Rectus muscle approximated with []. Fascia closed with [ONE MONOCRYL], and skin closed with shy. Estimated blood loss 700 []mL. Post-Procedure Findings: Live Baby [], Apgars [] and [], weight [], position [], [] presentation []cord. Estimated blood loss: other (700) Specimen(s): yes (see below) (PLACENTA) Grafts/Implants: no Complication(s): no Pt Condition post procedure: stable Disposition: PACU Physician Certification I, the undersigned physician, hereby certify that I have discussed the procedure described in this consent form with this patient (or the patient's legal sales and service representative), including: * The risk and benefits of the procedure; * Any adverse reactions that may reasonably be expected to occur; * Any alternative efficacious methods of treatment which may be medically viable ; * The potential problems that may occur during recuperation; * Potential for blood transfusion and associated risks/benefits; and * Any research or economic interest I may have regarding this treatment. I further certify that the patient/legally responsible person was encouraged to ask question and that all questions were answered. MEI NIXON MD May 27, 2017 06:18
[2017-05-27] MEDS ORDERED: NALOXONE (0.4 MG/ML) INJ IV PRN (07:00)
[2017-05-27] MEDS ORDERED: HYDROmorphONE 0.5 MG/0.5 ML SYG IV PRN ×2 (07:00)
[2017-05-27] MEDS ORDERED: EPHEDrine SULFATE 50 MG/5 ML SYG ONE (07:00)
[2017-05-27] MEDS ORDERED: ZOLPIDEM 5 MG TAB PO PRN (07:00)
[2017-05-27 09:10] VITALS: BP 111/61; PULSE 70; RESP 17
[2017-05-27] MEDS ORDERED: OXYTOCIN 30 UNITS/LR 500 ML IV PRN (10:00)
[2017-05-27] MEDS ORDERED: MISOPROSTOL 200 MCG TAB PR PRN (10:00)
[2017-05-27] MEDS ORDERED: NA PHOSPHATE/BIPHOS 133 ML ENEMA PR PRN (10:00)
[2017-05-27] MEDS ORDERED: NACL 0.9% 3 ML SYG IV SCH (10:00)
[2017-05-27] MEDS ORDERED: CARBOPROST 250 MCG INJ IM PRN (10:00)
[2017-05-27] MEDS ORDERED: LANOLIN 7 GM TUBE TOP PRN (10:00)
[2017-05-27] MEDS ORDERED: METHYLERGONOVINE 0.2 MG INJ IM PRN (10:00)
[2017-05-27 12:00] VITALS: BP 104/59; PULSE 79; RESP 16
[2017-05-27] MEDS: OXYTOCIN 30 UNITS/LR 500 ML IV SCH ×2 (13:01→17:14)
[2017-05-27 16:00] VITALS: BP 108/59; PULSE 80; RESP 16
[2017-05-27 19:40] VITALS: BP 106/52; PULSE 88; RESP 18
[2017-05-28] VITALS: BP 99/52; PULSE 86; RESP 18
[2017-05-28] MEDS: LACTATED RINGER'S 1,000 ML IV SCH (01:37)
[2017-05-28 04:30] VITALS: BP 101/61; PULSE 76
[2017-05-28] MEDS: IBUPROFEN 800 MG TAB PO SCH ×3 (05:55→22:15)
[2017-05-28 08:00] VITALS: BP 105/63; PULSE 76; RESP 19
[2017-05-28] MEDS ORDERED: INFLUENZA VIRUS VACCINE 0.5 ML SYG IM* ONE (11:00)
[2017-05-28] MEDS: HYDROCODONE/APAP (5/325) TAB PO PRN ×2 (11:26→18:08)
[2017-05-28 14:15] LABS: BASOPHILS % 0.3 % (0.0-2.0); EOSINOPHILS # 0.4 10^3/ul (0.0-0.5); EOSINOPHILS % 4.3 % (0.0-7.0); HEMATOCRIT 23.8 % (37.0-47.0); HEMOGLOBIN 7.9 g/dl (12.0-16.0); LYMPHOCYTES # 1.4 10^3/ul (0.8-2.9); LYMPHOCYTES % 15.1 % (15.0-51.0); MEAN CORPUSCULAR HEMOGLOBIN 29.6 pg (29.0-33.0); MEAN CORPUSCULAR HGB CONC 33.2 g/dl (32.0-37.0); MEAN CORPUSCULAR VOLUME 89.1 fl (82.0-101.0); NEUTROPHIL # 6.6 10^3/ul (1.6-7.5); PLATELET COUNT 165 10^3/UL (140-415); RED BLOOD COUNT 2.67 10^6/ul (4.20-5.40); RED CELL DISTRIBUTION WIDTH 13.1 % (11.5-14.5); WHITE BLOOD COUNT 9.5 10^3/ul (4.8-10.8)
--- NOTE | 2017-05-28 15:02 | QN ---
Documentation Comment POD#1 is stable afebrile No VB +Flatus +Adequate urine VS stable Gen NAD Abd soft NT ND Genitalia No blood at perinium --->discharge plan tomorrow ELIECER MARQUEZ M.D. May 28, 2017 15:02
[2017-05-28 15:55] VITALS: BP 94/65; RESP 18
[2017-05-28 18:42] LABS: BASOPHILS % 0.2 % (0.0-2.0); EOSINOPHILS # 0.4 10^3/ul (0.0-0.5); EOSINOPHILS % 4.6 % (0.0-7.0); HEMATOCRIT 25.1 % (37.0-47.0); HEMOGLOBIN 8.2 g/dl (12.0-16.0); LYMPHOCYTES # 1.1 10^3/ul (0.8-2.9); LYMPHOCYTES % 12.8 % (15.0-51.0); MEAN CORPUSCULAR HEMOGLOBIN 29.2 pg (29.0-33.0); MEAN CORPUSCULAR HGB CONC 32.7 g/dl (32.0-37.0); MEAN CORPUSCULAR VOLUME 89.3 fl (82.0-101.0); MEAN PLATELET VOLUME 10.5 fl (7.4-10.4); MONOCYTE # 0.8 10^3/ul (0.3-0.9); MONOCYTES % 8.8 % (0.0-11.0); NEUTROPHIL # 6.3 10^3/ul (1.6-7.5); NEUTROPHILS % 73.3 % (39.0-77.0); PLATELET COUNT 179 10^3/UL (140-415); RED BLOOD COUNT 2.81 10^6/ul (4.20-5.40); RED CELL DISTRIBUTION WIDTH 13.2 % (11.5-14.5); WHITE BLOOD COUNT 8.7 10^3/ul (4.8-10.8)
[2017-05-28 19:30] VITALS: BP 105/65; PULSE 78; RESP 18
[2017-05-29 04:15] VITALS: BP 98/52; PULSE 65; RESP 20
[2017-05-29] MEDS: IBUPROFEN 800 MG TAB PO SCH ×3 (05:35→23:22)
[2017-05-29 08:00] VITALS: BP 92/63; PULSE 72; RESP 19
[2017-05-29 16:00] VITALS: BP 110/68; PULSE 85; RESP 18
[2017-05-29 20:35] VITALS: BP 103/60; PULSE 76
[2017-05-29] MEDS ORDERED: INFLUENZA VIRUS VACCINE 0.5 ML (DISPENSING) IM* ONE (23:00)
[2017-05-30] MEDS: IBUPROFEN 800 MG TAB PO SCH ×2 (05:22→13:41)
[2017-05-30 05:25] VITALS: BP 102/61; PULSE 62; RESP 15
[2017-05-30 07:20] VITALS: BP 108/57; PULSE 61; RESP 19
[2017-05-30] MEDS ORDERED: DIPHTH/TET/ACEL PERTUSS (ADULT) 0.5 ML VIAL IM* ONE (09:00)
[2017-05-30] MEDS ORDERED: MEASLES,MUMPS,RUBELLA VACCINE INJ SC* ONE (09:00)
--- NOTE | 2017-05-30 10:32 | DS ---
Date/Time of Note Date/Time of Note DATE: 05/30/17 TIME: 10:31 Discharge Summary Admission/Discharge Info Admit Date/Time May 26, 2017 at 16:26 Discharge Date/Time Discharge Diagnosis term Patient Condition: Stable Procedures repeat c/s Hospital Course unremarkable Home Meds Reported Medications Hydroxyprogesterone Caproate (Suzette) 250 Mg/1 Ml Vial, 250 MG IM, VIAL 04/13/17 Vits W-Ca,Fe,Fa(<1MG) ( Vitamins) 1 Tab Tablet, 1 TAB PO DAILY 01/30/15 Primary Care Provider DO HUSSAIN Diehl PAYMAN P MD May 30, 2017 10:32
== END 2017-05-30 14:41 | disposition home or self-care (01) | DRG 765 ==
LOC: L-D 16:26 → PP1 05-27 09:02 → EDSTATUS 06-20 16:23
PROVIDERS: ADMIT Obstetrics & Gynecology; ATTEND Obstetrics & Gynecology
PROC: 10D00Z1 Extraction of Products of Conception, Low, Open Approach (ICD-10-PCS; principal; 2017-05-27 05:30)
DX: O36.5930 Maternal care for other known or suspected poor fetal growth, third trimester, not applicable or unspecified (principal); O41.03X0 Oligohydramnios, third trimester, not applicable or unspecified; Z3A.49 Greater than 42 weeks gestation of pregnancy; Z37.0 Single live birth
CPT/HCPCS: 80307; 85025; 85610; 85730; 86592; 86850; 86900; 86901; 86920; 87340; 88307; 90686; 90715; 99464; J0690; J1200; J1885; J2274; J2370; J2405; J2590; J2765; J3010; J7120